=== PATIENT | male | born 1965 | race Caucasian/White ===

== ENCOUNTER 2017-12-31 16:00 | Emergency (ER) | payer OTHER ==
[~2017-12-31] VITALS: Ht 175.3 cm; Wt 63.5 kg
--- NOTE | 2017-12-31 16:53 | NUR ---
LABS DRAWN/URINE SENT/EKG DONE.
[2017-12-31 17:14] LABS: CARBON DIOXIDE 30 mmol/L (21-32); CHLORIDE 101 mmol/L (98-107); CREATININE 1.2 mg/dL (0.6-1.3); GLUCOSE 142 mg/dL (74-106); POTASSIUM 3.5 mmol/L (3.5-5.1); UREA NITROGEN, BLOOD 12 mg/dL (7-18)
[2017-12-31 17:15] LABS: ETHANOL < 3 MG/DL (0-0)
[2017-12-31 17:19] LABS: *BILIRUBIN,URIN NEGATIVE (NEGATIVE); *BLOOD, URINE Trace-intact (NEGATIVE); *CLARITY,URINE CLEAR (CLEAR); *COLOR,URINE YELLOW (YELLOW); *KETONES,URINE NEGATIVE (NEGATIVE); *PROTEIN,URINE NEGATIVE (NEGATIVE); *UROBILINOGEN,URINE 0.2 E.U./dl (NORMAL); LEUKOCYTE ESTERASE ,URINE NEGATIVE (NEGATIVE); NITRITE, URINE NEGATIVE (NEGATIVE); UGLUCOSE NEGATIVE (NEGATIVE)
[2017-12-31 17:20] LABS: ALANINE AMINOTRANSFERASE 19 U/L (16-63); ALKALINE PHOSPHATASE 96 U/L (50-136); ASPARTATE AMINOTRANSFERASE 15 U/L (15-37); BASOPHILS # (AUTO) 0.1 K/uL (0.0-8.0); BASOPHILS % (AUTO) 0.9 % (0.0-2.0); BILIRUBIN,DIRECT 0.2 mg/dL (0.0-0.2); BILIRUBIN,TOTAL 0.5 mg/dL (0.2-1.0); EOSINOPHILS # (AUTO) 0.1 K/uL (0.0-0.7); EOSINOPHILS % (AUTO) 0.8 % (0.0-7.0); LYMPHOCYTES # (AUTO) 1.3 K/uL (20.0-40.0); LYMPHOCYTES % (AUTO) 18.3 % (20.5-51.5); MEAN CORPUSCULAR HEMOGLOBIN 30.6 uug (23.8-33.4); MEAN CORPUSCULAR HGB CONC 33 g/dL (32.5-36.3); MEAN CORPUSCULAR VOLUME 91.6 fL (73.0-96.2); MONOCYTES # (AUTO) 0.5 K/uL (2.0-10.0); MONOCYTES % (AUTO) 6.6 % (0.0-11.0); NEUTROPHILS # (AUTO) 5.2 K/uL (1.8-8.9); NEUTROPHILS % (AUTO) 73.4 % (38.5-71.5); PLATELET COUNT (AUTO) 348 K/uL (152-348); RED BLOOD CELL COUNT(AUTO) 4.58 MIL/uL (4.06-5.63); TOTAL PROTEIN, SERUM 8.1 g/dL (6.4-8.2); WHITE BLOOD COUNT (AUTO) 7.1 K/uL (3.6-10.2)
[2017-12-31 17:27] LABS: BACTERIA,URINE NONE SEEN /HPF (NONE SEEN); MUCUS,URINE MANY /LPF (0-FEW); SQUAMOUS EPITHELIAL CELL,UR FEW /HPF (NONE SEEN); WBC,URINE 0-3 /HPF (0-3)
[2017-12-31 17:28] LABS: *AMPHETAMINE, URINE POSITIVE (NEGATIVE); *BARBITURATE, URINE NEGATIVE (NEGATIVE); *CANNABINOID, URINE POSITIVE (NEGATIVE); *COCCAINE, URINE NEGATIVE (NEGATIVE); *OPIATE, URINE NEGATIVE (NEGATIVE); *PHENCYCLIDINE SCREEN,URINE NEGATIVE (NEGATIVE)
[2017-12-31 17:29] LABS: ACETAMINOPHEN < 2.0 ug/mL (10-30)
[2017-12-31] MEDS ORDERED: ALPRAZOLAM 0.25 MG TABLET PO ONE (17:30)
[2017-12-31] MEDS ORDERED: CLONIDINE HCL 0.1 MG TABLET PO ONE (17:30)
[2017-12-31] MEDS ORDERED: IV NS 1000 ML 1,000 ML IV ONE (17:30)
[2017-12-31] MEDS ORDERED: CLONIDINE HCL 0.1 MG TABLET ONE (17:31)
[2017-12-31] MEDS ORDERED: ALPRAZOLAM 0.25 MG TABLET ONE (17:33)
[2017-12-31 17:34] VITALS: BP 156/93
--- NOTE | 2017-12-31 17:38 | NUR ---
LABS DRAWN/EKG DONE/MEDS ADMIN/PT REFUSED SALINE LOCK AND SONY NOTIFIED. 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
--- NOTE | 2017-12-31 17:43 | NUR ---
DREA ASKEW EVALUATED THE PT. PT REFUSED TO WAIT FOR ACI AND ELOPED. PT TOOK ALL BELONGINGS, AMBULATED W/O DIFF. AWARE.
== END 2017-12-31 17:45 | disposition left against medical advice (07) ==
LOC: ER 16:03
DX: F32.9 Major depressive disorder, single episode, unspecified (principal); F41.9 Anxiety disorder, unspecified; F29 Unspecified psychosis not due to a substance or known physiological condition; R44.0 Auditory hallucinations; R03.0 Elevated blood-pressure reading, without diagnosis of hypertension; F15.10 Other stimulant abuse, uncomplicated; F04 Amnestic disorder due to known physiological condition; F12.10 Cannabis abuse, uncomplicated; Z59.0 Homelessness
CPT/HCPCS: 36415; 70030-TC; 71045; 80307; 85025; 93005; A4663; G0480; G0480-TC; J7030